=== PATIENT | female | born 1945 | race Caucasian/White ===

== ENCOUNTER 2016-10-12 06:06 | Inpatient (IN) | payer OTHER ==
[~2016-10-12] VITALS: Ht 154.9 cm; Wt 68.5 kg
[~2016-10-12 06:06] MED LIST: CRANCAP12 OR; D-MAPOW8 OR; OMEP20CA5 PO; POLY335015 PO; PRAV20TA3 PO
[2016-10-12] MEDS ORDERED: BUPIVACAINE 0.25% INJ 50ML VIAL ONE (06:39)
[2016-10-12] MEDS ORDERED: LIDOCAINE W/ EPINEPHRINE 1 % INJ 30ML ONE (06:39)
[2016-10-12] MEDS ORDERED: LIDOCAINE 1% HCL (LOCAL ANESTH.) INJ 20ML MDV ONE (06:39)
[2016-10-12] MEDS ORDERED: ceFAZolin 1GM/50ML D5W 50 ML IV ONE (07:10)
[2016-10-12] MEDS ORDERED: ETOMIDATE (2MG/ML) 20ML VIAL IV ONE (07:21)
[2016-10-12] MEDS ORDERED: DEXAMETHASONE SOD PHOS 10MG/1ML VIAL INJ ONE (07:21)
[2016-10-12] MEDS ORDERED: MIDAZOLAM HCL 1MG/1ML-2 ML VIAL ONE (07:21)
[2016-10-12] MEDS ORDERED: ONDANSETRON HCL 4 MG/2 ML VIAL ONE ×2 (07:21→11:17)
[2016-10-12] MEDS ORDERED: fentaNYL CITRATE 100 MCG/2 ML VL ONE ×3 (07:21→09:49)
[2016-10-12] MEDS ORDERED: ROCURONIUM 10MG/ML 10ML VIAL IV ONE (07:30)
[2016-10-12] MEDS ORDERED: GLYCOPYRROLATE 0.2 MG/ML 1ML VIAL IV ONE (07:50)
[2016-10-12] MEDS ORDERED: NEOSTIGMINE 1 MG/ML INJ (10mg/10ML VIAL) IV ONE (07:50)
[2016-10-12] MEDS ORDERED: LEVOFLOXACIN 500MG 100 ML IV ONE (08:22)
[2016-10-12] MEDS ORDERED: NEOSTIGMINE 1 MG/ML INJ (10mg/10ML VIAL) ONE (09:41)
[2016-10-12] MEDS ORDERED: GLYCOPYRROLATE 0.2 MG/ML 1ML VIAL ONE (09:41)
[2016-10-12] MEDS: D5W/SOD CHL 0.45% 1,000 ML IV SCH ×3 (10:20→23:23)
[2016-10-12] MEDS ORDERED: HYDROmorphone HCL 2 MG/ML VL IV PRN ×2 (10:30)
[2016-10-12] MEDS: PANTOPRAZOLE 40 MG TAB PO SCH (10:30)
[2016-10-12] MEDS ORDERED: ONDANSETRON HCL 4 MG/2 ML VIAL IV ONE (10:30)
[2016-10-12] MEDS ORDERED: ONDANSETRON HCL 4 MG/2 ML VIAL IV PRN (10:30)
[2016-10-12] MEDS ORDERED: diphenhdrAMINE HCL 50 MG/1 ML VL IV PRN (10:30)
[2016-10-12] MEDS ORDERED: POLYETHYLENE GLYCOL 17GM PWDR PO PRN (10:45)
[2016-10-12] MEDS: CEFOXITIN SODIUM 1 GM in D5W 5% 50 ML IV SCH ×2 (11:00→18:58)
[2016-10-12 11:05] LABS: BUN/Creatinine Ratio 14.7; Calcium 9.1 mg/dL (8.5-10.1); Potassium 4.4 mmol/L (3.5-5.1)
[2016-10-12 20:00] VITALS: BP 95/52
[2016-10-12 21:30] VITALS: BP 92/52
[2016-10-12] MEDS: ACETAMINOPHEN/CODEINE#3 (300/30mg) TAB PO PRN (21:51)
[2016-10-12] MEDS: PRAVASTATIN SODIUM 20 MG TAB PO SCH (21:51)
[2016-10-13] VITALS (7 sets, daily range): BP systolic 93–106; BP diastolic 52–64
[2016-10-13] MEDS: CEFOXITIN SODIUM 1 GM in D5W 5% 50 ML IV SCH (02:48)
[2016-10-13] MEDS: ACETAMINOPHEN/CODEINE#3 (300/30mg) TAB PO PRN ×2 (09:14→19:51)
[2016-10-13] MEDS: PANTOPRAZOLE 40 MG TAB PO SCH (09:14)
[2016-10-13] MEDS: D5W/SOD CHL 0.45% 1,000 ML IV SCH ×2 (09:15→18:17)
[2016-10-13] MEDS: LEVOFLOXACIN 500MG 100 ML IV SCH (09:15)
[2016-10-13] MEDS: PRAVASTATIN SODIUM 20 MG TAB PO SCH (21:52)
[2016-10-14 05:00] VITALS: BP 95/56
[2016-10-14] MEDS: PANTOPRAZOLE 40 MG TAB PO SCH (06:03)
[2016-10-14 07:03] LABS: BUN/Creatinine Ratio 10.8; Calcium 8.4 mg/dL (8.5-10.1); Potassium 3.7 mmol/L (3.5-5.1)
[2016-10-14 07:13] LABS: Basophils # (auto) 0 uL; Basophils % (auto) 0.3 % (0.0-2.0); Eosinophils # (auto) 0 uL; Eosinophils % (auto) 0.5 % (0.0-7.0); Hematocrit 32.9 % (36.0-46.0); Hemoglobin 10.9 g/dL (12.2-16.2); Lymphocytes # (auto) 2.2 uL; Lymphocytes % (auto) 24.2 % (10.0-50.0); Mean Corpuscular Hemoglobin 30.6 pg (28.0-32.0); Mean Corpuscular Hgb Conc. 32.9 g/dL (32.0-36.0); Mean Corpuscular Volume 92.9 fL (80.0-100.0); Mean Platelet Volume 7.5 fL (7.4-10.4); Monocytes # (auto) 0.6 uL; Monocytes % (auto) 6.6 % (0.0-12.0); Neutrophils # (auto) 6.2 uL; Neutrophils % (auto) 68.4 % (37.0-80.0); Platelet Count (auto) 294 10^3/uL (140-450); Red Cell Distribution Width 13.8 % (11.6-16.0); White Blood Cell 9.1 10^3/uL (4.4-10.8)
[2016-10-14 08:00] VITALS: BP 95/56
[2016-10-14 09:00] VITALS: BP 90/43
[2016-10-14] MEDS: LEVOFLOXACIN 500MG 100 ML IV SCH (09:27)
[2016-10-14 11:01] VITALS: BP 97/56
== END 2016-10-14 11:50 | disposition home or self-care (01) | DRG 660 ==
LOC: SUR 06:06 → EAST 06:07
PROVIDERS: ADMIT Urology; ATTEND Urology
PROC: 0TQ44ZZ Repair Left Kidney Pelvis, Percutaneous Endoscopic Approach (ICD-10-PCS; 2016-10-12)
PROC: 0T788DZ Dilation of Bilateral Ureters with Intraluminal Device, Via Natural or Artificial Opening Endoscopic (ICD-10-PCS; 2016-10-12)
PROC: 0TP98DZ Removal of Intraluminal Device from Ureter, Via Natural or Artificial Opening Endoscopic (ICD-10-PCS; 2016-10-12)
PROC: 8E0W4CZ Robotic Assisted Procedure of Trunk Region, Percutaneous Endoscopic Approach (ICD-10-PCS; 2016-10-12)
PROC: BT141ZZ Fluoroscopy of Kidneys, Ureters and Bladder using Low Osmolar Contrast (ICD-10-PCS; principal; 2016-10-12 07:50)
DX: N13.0 Hydronephrosis with ureteropelvic junction obstruction (principal); N13.1 Hydronephrosis with ureteral stricture, not elsewhere classified; K21.9 Gastro-esophageal reflux disease without esophagitis; E78.00 Pure hypercholesterolemia, unspecified; Z98.51 Tubal ligation status; Z83.3 Family history of diabetes mellitus; Z82.49 Family history of ischemic heart disease and other diseases of the circulatory system; Z80.51 Family history of malignant neoplasm of kidney
CPT/HCPCS: 36415; 80048; 85025; 86850; 86900; 86901; J0690; J1100; J1956; J2001; J2250; J2405; J3490; J7060